=== PATIENT | female | born 1990 | race Caucasian/White ===

== ENCOUNTER 2023-10-04 10:57 | Day surgery (SDC) | payer OTHER ==
[~2023-10-04] VITALS: Ht 152.4 cm; Wt 55.8 kg
[2023-10-04] VITALS (16 sets, daily range): BP systolic 07–123; BP diastolic 57–79
[~2023-10-04 10:57] MED LIST: C COMPLEX1000 M1 PO; CODACE30 PO; CeFAZolin Sodium 2,000 MG in NS 100 ML IV SCH; IBUP800 PO; Lactated Ringer's 1,000 ML IV SCH; METPRE4 PO; VITAMIN B12500 MCG PO; VITAMIN D350 MC3 PO
[2023-10-04] MEDS ORDERED: CeFAZolin Sodium 2,000 MG VIAL ONE (11:38)
--- NOTE | 2023-10-04 12:03 | NUR ---
PATIENT ACCOMPANIED TO DAY SURGERY WITH MOM, JAMIN. SIGNIFICANT OTHER, CHERRY, TO DRIVE PATIENT HOME.
[2023-10-04] MEDS ORDERED: Bupivacaine 0.5% HCl 5 MG/ML 30MLVIAL ONE (12:34)
[2023-10-04] MEDS ORDERED: propofoL 20 ML IV ONE (13:36)
[2023-10-04] MEDS ORDERED: Rocuronium Bromide 10 MG/ML 5ML Injection IV ONE (13:37)
[2023-10-04] MEDS ORDERED: FentaNYL Citrate 50 MCG/ML 2 ML Injection ONE ×3 (13:37→17:02)
[2023-10-04] MEDS ORDERED: Dexamethasone Sod Phos 10 MG/ML 1ML VIAL ONE (14:04)
[2023-10-04] MEDS ORDERED: Glycopyrrolate 0.2 MG/ML 5ML VIAL ONE (14:23)
[2023-10-04] MEDS ORDERED: ePHEDrine Sulfate 50 MG/ML 1ML Injection ONE (14:26)
[2023-10-04] MEDS ORDERED: Sugammadex Sodium 200 MG/2ML SDV (100 MG/ML) ONE (15:49)
[2023-10-04] MEDS ORDERED: Ondansetron HCl 2 MG / ML 2ML Vial ONE (15:49)
[2023-10-04] MEDS ORDERED: Ketorolac Tromethamine 30mg Vial ONE (16:56)
[2023-10-04] MEDS ORDERED: HYDROmorphone HCl/Pf 1MG SYR ONE (17:11)
[2023-10-04] MEDS ORDERED: Ondansetron HCl 2 MG / ML 2ML Vial IV PRN (17:20)
[2023-10-04] MEDS ORDERED: OxyCODONE 5 mg/Acetamin 325 mg TABLET PO PRN (17:20)
--- NOTE | 2023-10-04 18:49 | NUR ---
Discharge instructions reviewed with patient. Patient verbalizes understanding. Copy given to patient to take home. Discharged via wheelchair to private car for ride home. ICE PACK, PERIPAD & BRIEFS PROVIDED.
== END 2023-10-04 22:45 | disposition home or self-care (01) ==
LOC: ORSCMMR 10:57 → ORD 12:30 → ORSCMMR 12:30 → ORD 11-01 12:30
PROVIDERS: Obstetrics & Gynecology
PROC: 0U5F4ZZ Destruction of Cul-de-sac, Percutaneous Endoscopic Approach (ICD-10-PCS; principal; 2023-10-04 12:30)
PROC: 0U514ZZ Destruction of Left Ovary, Percutaneous Endoscopic Approach (ICD-10-PCS; principal; 2023-10-04 12:30)
DX: N83.292 Other ovarian cyst, left side (principal); N80.30 Endometriosis of pelvic peritoneum, unspecified; K66.0 Peritoneal adhesions (postprocedural) (postinfection); F17.290 Nicotine dependence, other tobacco product, uncomplicated
CPT/HCPCS: 88305; A9270; J0690; J1100; J1170; J1885; J2405; J2704; J3010; J7120